=== PATIENT | male | born 2000 | race Caucasian/White ===

== ENCOUNTER 2023-02-13 16:34 | Emergency (ER) | payer MEDICAID ==
[~2023-02-13] VITALS: Ht 162.6 cm; Wt 54.0 kg
[2023-02-13 16:42] VITALS: BP 117/65
--- NOTE | 2023-02-13 16:46 | NUR ---
pt ambulatory to lobby accomapnied by mother
--- NOTE | 2023-02-13 17:29 | NUR ---
WOUND IRRIGATED. PT TOLERATED.
[2023-02-13] MEDS ORDERED: IBUP-2213 PO (18:11)
--- NOTE | 2023-02-13 18:16 | NUR ---
PT HAS BEEN TREATED FOR LACERATION TO THE HEAD. PT HAS BEEN MEDICATED PER PROVIDERS ORDERS. PT TOLERATED TREATMENT WELL. PT HAS THREE [place] PLACED MIDLINE OF HEAD. PT UNDERSTANDS FOLLOW UP CARE. WILL CONTINUE TO MONITOR PT FOR ADVERSE REACTIONS TO MEDICATION. PT IS AWAITING DISCHARGE FROM PROVIDER.
--- NOTE | 2023-02-13 18:28 | NUR ---
Patient discharged with v/s stable. Written and verbal after care instructions given and explained. Patient verbalized understanding. Ambulatory with to car. Pt had no adverse reactions to tetnus. All questions addressed prior to discharge. Advised to follow up with PMD and to return for staple remove in 7 days.
[2023-02-13 18:30] VITALS: BP 105/61
--- NOTE | 2023-02-13 18:35 | NUR ---
The patient's care was reviewed and supervised by Upham 05 STEVEN, RN.
== END 2023-02-13 18:28 | disposition home or self-care (01) ==
LOC: MED 16:34
DX: S01.01XA Laceration without foreign body of scalp, initial encounter (principal); Z79.899 Other long term (current) drug therapy; W31.89XA Contact with other specified machinery, initial encounter; Y93.89 Activity, other specified; Y92.89 Other specified places as the place of occurrence of the external cause; Y99.8 Other external cause status
CPT/HCPCS: 12001; 90471; 90715; 99283

== ENCOUNTER 2023-02-21 20:21 | Emergency (ER) | payer MEDICAID ==
[~2023-02-21] VITALS: Ht 162.6 cm; Wt 54.0 kg
[~2023-02-21 20:21] MED LIST: IBUP-2213 PO
[2023-02-21 21:01] VITALS: BP 100/63; PULSE 72; RESP 20; TEMP 98; O2SAT 98
--- NOTE | 2023-02-21 21:20 | NUR ---
Patient discharged with v/s stable. Written and verbal after care instructions given and explained. Patient verbalized understanding. Ambulatory with steady gait. All questions addressed prior to discharge. Advised to follow up with PMD. Dr. Carcamo's orders reinforced
== END 2023-02-21 21:20 | disposition home or self-care (01) ==
LOC: MED 20:21
DX: S01.01XD Laceration without foreign body of scalp, subsequent encounter (principal); Z48.02 Encounter for removal of sutures; X58.XXXD Exposure to other specified factors, subsequent encounter
CPT/HCPCS: 99281

== ENCOUNTER 2023-06-28 11:48 | Emergency (ER) | payer MEDICAID ==
[~2023-06-28] VITALS: Ht 162.6 cm; Wt 56.7 kg
[2023-06-28 12:04] VITALS: BP 120/78; PULSE 81; RESP 14; TEMP 97.5; O2SAT 100
[2023-06-28 12:40] LABS: APPEARANCE,URINE CLEAR (CLEAR); BILIRUBIN,URINE NEGATIVE (NEGATIVE); BLOOD, URINE NEGATIVE (NEGATIVE); COLOR,URINE YELLOW (YELLOW); LEUKOCYTE ESTERASE ,URINE NEGATIVE (NEGATIVE); NITRITE, URINE NEGATIVE (NEGATIVE); PROTEIN,URINE NEGATIVE (NEGATIVE); UGLUCOSE NEGATIVE (NEGATIVE); UROBILINOGEN,URINE 0.2 EU/dL (0.2 - 1)
[2023-06-28] MEDS ORDERED: cefTRIAXone 500 MG in LIDOCAINE MPF 1% 1 ML IM ONE (12:55)
[2023-06-28] MEDS ORDERED: cefTRIAXone 500 MG VIAL ONE (13:07)
[2023-06-28] MEDS ORDERED: LIDOCAINE MPF 1% 5 ML ONE (13:08)
[2023-06-28] MEDS ORDERED: DOXY-487 PO (13:13)
[2023-06-28 13:41] VITALS: BP 120/78; PULSE 81; RESP 14; TEMP 97.5; O2SAT 100
== END 2023-06-28 13:42 | disposition home or self-care (01) ==
LOC: MED 11:48
DX: Z11.3 Encounter for screening for infections with a predominantly sexual mode of transmission (principal); R30.0 Dysuria; Z79.2 Long term (current) use of antibiotics; Z79.1 Long term (current) use of non-steroidal anti-inflammatories (NSAID)
CPT/HCPCS: 81003; 87491; 96372; 99283; J0696; J2001